=== PATIENT | male | born 1975 | race African-American/Black ===

== ENCOUNTER 2017-02-08 12:45 | Inpatient (IN) | payer MEDICAID, OTHER ==
[~2017-02-08] VITALS: Ht 172.7 cm; Wt 130.0 kg
[2017-02-08] MEDS ORDERED: QUET25TA PO (12:54)
[2017-02-08] MEDS ORDERED: HYDR25TA PO (12:54)
[2017-02-08] MEDS ORDERED: ASPI81 PO (12:54)
[2017-02-08] MEDS ORDERED: LISI-661 PO (12:54)
[2017-02-08 14:42] LABS: BASOPHILS % (AUTO) 0.6 % (0.0-2.0); EOSINOPHILS % (AUTO) 2.2 % (1.0-6.0); HEMATOCRIT 45.1 % (41-53); HEMOGLOBIN 14.5 g/dL (13.5-17.5); LYMPHOCYTES # (AUTO) 1.6 K/uL (1.0-4.8); LYMPHOCYTES % (AUTO) 24.7 % (22.0-44.0); MEAN CORPUSCULAR HEMOGLOBIN 27.7 pg (26.0-34.0); MEAN CORPUSCULAR HGB CONC 32.3 G/dL (31.0-37.0); MEAN CORPUSCULAR VOLUME 86 fL (80-100); MONOCYTES # (AUTO) 0.4 K/uL (0.1-1.0); MONOCYTES % (AUTO) 6.4 % (2.0-9.0); NEUTROPHILS # (AUTO) 4.2 K/uL (1.8-7.7); NEUTROPHILS % (AUTO) 66.1 % (40.0-70.0); PLATELET COUNT (AUTO) 217 K/uL (150-450); RED BLOOD CELL COUNT(AUTO) 5.26 MIL/uL (4.50-5.90); RED CELL DISTRIBUTION WIDTH 12.9 % (11.5-14.5); WHITE BLOOD COUNT (AUTO) 6.3 K/uL (4.5-11.0)
[2017-02-08 14:50] LABS: ANION GAP 8 mmol/L (8-16); CARBON DIOXIDE 30 mmol/L (22-29); CHLORIDE 103 mmol/L (98-107); CREATININE 1.09 mg/dL (0.60-1.30); GLOMERULAR FILTR. RATE CALC > 60 mL/min (>60); POTASSIUM 3.7 mmol/L (3.5-5.1); SODIUM SERUM 141 mmol/L (136-145); UREA NITROGEN, BLOOD 13 mg/dL (7-18)
[2017-02-08 14:57] LABS: ALANINE AMINOTRANSFERASE 41 U/L (12-78); ALBUMIN 3.8 g/dL (3.4-5.0); ASPARTATE AMINOTRANSFERASE 22 U/L (15-37); BILIRUBIN,TOTAL 0.4 mg/dL (0.1-1.0); TOTAL PROTEIN, SERUM 7.6 g/dL (6.4-8.2)
[2017-02-08] MEDS ORDERED: LORazepam 2 MG TABLET PO ONE (15:00)
[2017-02-08] MEDS ORDERED: ZOLPIDEM TARTRATE 10 MG TABLET PO PRN (15:45)
[2017-02-08] MEDS ORDERED: CloNIDine HCL 0.2 MG TABLET PO ONE (16:30)
[2017-02-08 17:15] VITALS: BP 170/110
[2017-02-08] MEDS ORDERED: CloNIDine HCL 0.1 MG TABLET PO PRN (18:15)
[2017-02-08] MEDS: HYDROCHLOROTHIAZIDE 25 MG TABLET PO SCH (19:16)
[2017-02-08] MEDS: LISINOPRIL 20 MG TABLET PO SCH (19:17)
[2017-02-08 19:25] VITALS: BP 132/84
[2017-02-09 08:05] VITALS: BP 142/82
[2017-02-09] MEDS ORDERED: MAG HYDROX/AL HYDROX/SIMETH ES 30 ML SUSPENSION UDCUP PO PRN (08:15)
[2017-02-09] MEDS ORDERED: BACITRACIN 28.4 GM OINTMENT TP PRN (08:15)
[2017-02-09] MEDS ORDERED: LOPERAMIDE HCL 2 MG CAPSULE PO PRN (08:15)
[2017-02-09] MEDS ORDERED: ALBUTEROL SULFATE HFA 90 MCG/PUFF 8 GM INHALER IH PRN (08:15)
[2017-02-09] MEDS ORDERED: ONDANSETRON HCL 4 MG TABLET PO PRN (08:15)
[2017-02-09] MEDS ORDERED: BENZOCAINE/MENTHOL LOZENGE [8 LOZENGES/PACKET] MM PRN (08:15)
[2017-02-09] MEDS ORDERED: ACETAMINOPHEN 325 MG TABLET PO PRN (08:15)
[2017-02-09] MEDS ORDERED: MAGNESIUM HYDROXIDE SUSPENSION 30 ML UDCUP PO PRN (08:15)
[2017-02-09] MEDS ORDERED: PETROLATUM,WHITE 71 GM JELLY TP PRN (08:15)
[2017-02-09] MEDS: LISINOPRIL 20 MG TABLET PO SCH (09:15)
[2017-02-09] MEDS: ASPIRIN 81 MG CHEWABLE TABLET PO SCH (09:15)
[2017-02-09] MEDS: HYDROCHLOROTHIAZIDE 25 MG TABLET PO SCH (09:15)
[2017-02-09 16:00] VITALS: BP 149/99
[2017-02-09] MEDS: LORazepam 2 MG TABLET PO PRN (18:18)
[2017-02-09] MEDS: QUEtiapine FUMARATE 25 MG TABLET PO SCH (20:09)
[2017-02-09] MEDS: IBUPROFEN 600 MG TABLET PO PRN (20:09)
[2017-02-09 20:11] VITALS: BP 148/87
[2017-02-10 08:05] VITALS: BP 150/82
[2017-02-10] MEDS: ASPIRIN 81 MG CHEWABLE TABLET PO SCH (10:13)
[2017-02-10] MEDS: LISINOPRIL 20 MG TABLET PO SCH (10:13)
[2017-02-10] MEDS: HYDROCHLOROTHIAZIDE 25 MG TABLET PO SCH (10:13)
[2017-02-10] MEDS: NICOTINE 21 MG/24 HOUR PATCH TD SCH (10:18)
[2017-02-10] MEDS: LORazepam 2 MG TABLET PO PRN (16:36)
[2017-02-10 16:49] VITALS: BP 142/92
[2017-02-10] MEDS: QUEtiapine FUMARATE 25 MG TABLET PO SCH (20:49)
[2017-02-10] MEDS: IBUPROFEN 600 MG TABLET PO PRN (20:49)
[2017-02-10 20:50] VITALS: BP 136/77
[2017-02-11] MEDS: ASPIRIN 81 MG CHEWABLE TABLET PO SCH (09:32)
[2017-02-11] MEDS: HYDROCHLOROTHIAZIDE 25 MG TABLET PO SCH (09:32)
[2017-02-11] MEDS: LISINOPRIL 20 MG TABLET PO SCH (09:32)
[2017-02-11] MEDS: LORazepam 2 MG TABLET PO PRN ×2 (09:34→15:56)
[2017-02-11] MEDS: NICOTINE 21 MG/24 HOUR PATCH TD SCH (09:38)
[2017-02-11 09:39] VITALS: BP 160/105
[2017-02-11] MEDS: IBUPROFEN 600 MG TABLET PO PRN (09:39)
[2017-02-11 16:00] VITALS: BP 154/98
[2017-02-11] MEDS: QUEtiapine FUMARATE 25 MG TABLET PO SCH (20:53)
[2017-02-12] MEDS: HYDROCHLOROTHIAZIDE 25 MG TABLET PO SCH (08:30)
[2017-02-12] MEDS: ASPIRIN 81 MG CHEWABLE TABLET PO SCH (08:30)
[2017-02-12] MEDS: NICOTINE 21 MG/24 HOUR PATCH TD SCH (08:31)
[2017-02-12] MEDS: LISINOPRIL 20 MG TABLET PO SCH (08:31)
[2017-02-12 08:33] VITALS: BP 156/95
[2017-02-12] MEDS ORDERED: LISI-662 PO (09:57)
== END 2017-02-12 11:00 | disposition home or self-care (01) | DRG 751 ==
LOC: EEVIPCON 12:45 → EMS 12:48 → 3EI 16:08
PROVIDERS: ADMIT Psychiatry & Neurology Child & Adolescent Psychiatry; ATTEND Psychiatry & Neurology Child & Adolescent Psychiatry
DX: F33.2 Major depressive disorder, recurrent severe without psychotic features (principal); R45.851 Suicidal ideations; Z68.41 Body mass index [BMI] 40.0-44.9, adult; F20.9 Schizophrenia, unspecified; I10 Essential (primary) hypertension; F41.9 Anxiety disorder, unspecified; E66.01 Morbid (severe) obesity due to excess calories; F15.10 Other stimulant abuse, uncomplicated; F17.210 Nicotine dependence, cigarettes, uncomplicated; F12.90 Cannabis use, unspecified, uncomplicated; Z79.82 Long term (current) use of aspirin; Z79.899 Other long term (current) drug therapy; Z71.6 Tobacco abuse counseling; Z71.51 Drug abuse counseling and surveillance of drug abuser; Z91.5 Personal history of self-harm; G47.00 Insomnia, unspecified
CPT/HCPCS: 99285; G0480

== ENCOUNTER 2017-09-02 05:58 | Emergency (ER) | payer MEDICAID ==
[~2017-09-02] VITALS: Ht 172.7 cm; Wt 104.0 kg
[~2017-09-02 05:58] MED LIST: ASPI81 PO; HYDR25TA PO; LISI-662 PO; QUET25TA PO
[2017-09-02 07:09] LABS: BASOPHILS % (AUTO) 0.3 % (0.0-2.0); EOSINOPHILS % (AUTO) 1.2 % (1.0-6.0); HEMATOCRIT 42.1 % (41-53); HEMOGLOBIN 13.9 g/dL (13.5-17.5); LYMPHOCYTES # (AUTO) 1.7 K/uL (1.0-4.8); LYMPHOCYTES % (AUTO) 21.7 % (22.0-44.0); MEAN CORPUSCULAR HEMOGLOBIN 28.5 pg (26.0-34.0); MEAN CORPUSCULAR HGB CONC 33.1 G/dL (31.0-37.0); MEAN CORPUSCULAR VOLUME 86 fL (80-100); MONOCYTES # (AUTO) 0.6 K/uL (0.1-1.0); MONOCYTES % (AUTO) 7.7 % (2.0-9.0); NEUTROPHILS # (AUTO) 5.5 K/uL (1.8-7.7); NEUTROPHILS % (AUTO) 69.1 % (40.0-70.0); PLATELET COUNT (AUTO) 239 K/uL (150-450); RED BLOOD CELL COUNT(AUTO) 4.89 MIL/uL (4.50-5.90); RED CELL DISTRIBUTION WIDTH 12.9 % (11.5-14.5)
[2017-09-02 07:16] LABS: ANION GAP 7 mmol/L (8-16); CALCIUM, TOTAL 9.3 mg/dL (8.8-10.5); CARBON DIOXIDE 29 mmol/L (22-29); CHLORIDE 105 mmol/L (98-107); CREATININE 1.14 mg/dL (0.60-1.30); GLOMERULAR FILTR. RATE CALC > 60 mL/min (>60); SODIUM SERUM 141 mmol/L (136-145); UREA NITROGEN, BLOOD 13 mg/dL (7-18)
[2017-09-02 07:23] LABS: ALANINE AMINOTRANSFERASE 22 U/L (12-78); ALBUMIN 3.6 g/dL (3.4-5.0); ASPARTATE AMINOTRANSFERASE 15 U/L (15-37); BILIRUBIN,TOTAL 0.7 mg/dL (0.1-1.0); TOTAL PROTEIN, SERUM 7.5 g/dL (6.4-8.2)
[2017-09-02 07:25] LABS: APPEARANCE,URINE CLEAR (CLEAR); GLUCOSE, URINE (UA) NEGATIVE (NEGATIVE); KETONES,URINE TRACE mg/dL (NEGATIVE); LEUKOCYTE ESTERASE ,URINE NEGATIVE (NEGATIVE); OCCULT BLOOD,URINE NEGATIVE (NEGATIVE); PROTEIN,URINE TRACE (NEGATIVE)
[2017-09-02 07:26] LABS: ADD UA MICROSCOPIC YES
[2017-09-02] MEDS ORDERED: ONDANSETRON HCL 4 MG/2 ML VIAL IVP ONE (07:30)
[2017-09-02] MEDS ORDERED: KETOROLAC TROMETHAMINE 30 MG/ML VIAL IVP ONE (07:30)
[2017-09-02] MEDS ORDERED: SODIUM CHLORIDE 0.9% 1,000 ML IV ONE (07:30)
[2017-09-02 07:32] LABS: RBC,URINE None Seen /HPF (0-2); SQUAMOUS EPITHELIAL CELL,UR Few /LPF (None Seen)
[2017-09-02 09:34] VITALS: BP 192/110
== END 2017-09-02 09:54 | disposition home or self-care (01) ==
LOC: EMS 05:59
DX: K80.20 Calculus of gallbladder without cholecystitis without obstruction (principal); I10 Essential (primary) hypertension; F17.210 Nicotine dependence, cigarettes, uncomplicated
CPT/HCPCS: 36415; 76700; 80053; 80307; 81001; 83690; 84484; 85025; 93005; 96361; 96374; 96375; 99285; 99406; J1885; J2405; J7030

== ENCOUNTER 2019-06-04 17:59 | Emergency (ER) | payer SELFPAY ==
[~2019-06-04] VITALS: Ht 177.8 cm; Wt 127.3 kg
[~2019-06-04 17:59] MED LIST changes: -QUET25TA PO
[2019-06-04 20:08] LABS: BASOPHILS % (AUTO) 0.9 % (0.0-2.0); EOSINOPHILS % (AUTO) 2.2 % (1.0-6.0); HEMATOCRIT 39.6 % (41-53); HEMOGLOBIN 12.9 g/dL (13.5-17.5); LYMPHOCYTES # (AUTO) 2.2 K/uL (1.0-4.8); LYMPHOCYTES % (AUTO) 32.3 % (22.0-44.0); MEAN CORPUSCULAR HEMOGLOBIN 28.2 pg (26.0-34.0); MEAN CORPUSCULAR HGB CONC 32.6 G/dL (31.0-37.0); MEAN CORPUSCULAR VOLUME 87 fL (80-100); MONOCYTES # (AUTO) 0.6 K/uL (0.1-1.0); MONOCYTES % (AUTO) 8.8 % (2.0-9.0); NEUTROPHILS # (AUTO) 3.7 K/uL (1.8-7.7); NEUTROPHILS % (AUTO) 55.8 % (40.0-70.0); PLATELET COUNT (AUTO) 209 K/uL (150-450); RED BLOOD CELL COUNT(AUTO) 4.58 MIL/uL (4.50-5.90)
[2019-06-04 20:22] LABS: ANION GAP 6 mmol/L (8-16); CALCIUM, TOTAL 9.3 mg/dL (8.8-10.5); CARBON DIOXIDE 29 mmol/L (22-29); CHLORIDE 102 mmol/L (98-107); GLOMERULAR FILTR. RATE CALC > 60 mL/min (>60); GLUCOSE,RANDOM 98 mg/dL (70-110); POTASSIUM 3.6 mmol/L (3.5-5.1); SODIUM SERUM 137 mmol/L (136-145); UREA NITROGEN, BLOOD 18 mg/dL (7-18)
[2019-06-04] MEDS: METOCLOPRAMIDE HCL 5 MG/ML 2 ML VIAL IVP ONE (20:28)
[2019-06-04 20:29] LABS: ALANINE AMINOTRANSFERASE 26 U/L (12-78); ALBUMIN 3.7 g/dL (3.4-5.0); ALKALINE PHOSPHATASE 36 U/L (46-116); ASPARTATE AMINOTRANSFERASE 22 U/L (15-37); BILIRUBIN,TOTAL 0.4 mg/dL (0.1-1.0); TOTAL PROTEIN, SERUM 7.2 g/dL (6.4-8.2)
[2019-06-04] MEDS: DiphenhydrAMINE HCL 50 MG/ML VIAL IVP ONE (20:29)
[2019-06-04] MEDS: SODIUM CHLORIDE 0.9% 1,000 ML IV ONE (20:29)
[2019-06-04] MEDS: KETOROLAC TROMETHAMINE 30 MG/ML VIAL IVP ONE (21:14)
[2019-06-04 22:00] VITALS: BP 130/75
== END 2019-06-04 22:22 | disposition home or self-care (01) ==
LOC: EMS 18:00
DX: R51 Headache (principal); G56.01 Carpal tunnel syndrome, right upper limb; I10 Essential (primary) hypertension; F20.9 Schizophrenia, unspecified; F17.210 Nicotine dependence, cigarettes, uncomplicated; Z79.899 Other long term (current) drug therapy
CPT/HCPCS: 29125; 36415; 70450; 80053; 85025; 96374; 96375; 99284; J1200; J1885; J2765; J7030